=== PATIENT | male | born 1960 | race Hispanic/Latino ===

== ENCOUNTER → 2019-06-21 11:34 | Outpatient (CLI) | payer OTHER, SELFPAY ==
[2019-06-21 15:41] LABS: Absolute Lymphocyte Count 1.76 X10^3/uL (0.83-4.51); Absolute Neutrophil Count 4.4 X10^3/uL (2.0-7.7); Basophil# 0.05 X10^3/uL; Basophil% 0.7 % (0-1); Eosinophil# 0.27 X10^3/uL; Eosinophils% 3.7 % (0-5); Hematocrit 44.8 % (40-54); Hemoglobin 14.2 g/dL (13.0-16.5); Lymphocyte # 1.76 X10^3/ul (4.0); Mean Corp Hgb Conc 31.7 g/dL (32-36); Mean Corpuscular Hgb 26.5 pg (27.0-32.0); Mean Corpuscular Volume 83.6 fL (80-94); Mean Platelet Vol. 11.5 fl (6.2-12.0); Monocyte# 0.87 X10^3/uL; Monocyte% 11.9 % (0-10); NRBC Flagged by Analyzer 0 % (0-5); Neutrophil # 4.35 X10^3/uL (2.7-7.7); Neutrophil % 59.2 % (47-70); Platelet Count 317 K/mm3 (150-450); RBC Distribution Width CV 13.5 % (11.6-14.6); RBC Distribution Width SD 41.2 fl (35.1-43.9); Red Blood Count 5.36 M/mm3 (4.6-6.2); White Blood Count 7.3 K/mm3 (4.4-11.0)
[2019-06-21 16:02] LABS: Anion Gap 4 (5-15); BUN 9 mg/dL (7-18); BUN/Creat Ratio 11.1 RATIO (10-20); Calcium,Total 8.8 mg/dL (8.5-10.1); Chloride 104 mmol/L (98-107); Cholesterol 181 mg/dL (200); Creatinine, Serum 0.81 mg/dL (0.70-1.30); EST Glomerular Filtration Rate 104 mL/min (>60); Est Glom Filt Rate - Afr Amer 125 mL/min (>60); Glucose 111 mg/dL (74-106); High Density Lipoprotein 42 mg/dL; PSA,Total - Annual Screen 0.15 ng/mL (0.00-4.00); Sodium Level 138 mmol/L (136-145); Thyroid Stim Hormone (TSH) 1.48 uIU/mL (0.358-3.74); Triglycerides 89 mg/dL; Very Low Density Lipoprotein 18 mg/dL (5-40)
[2019-06-25 08:08] LABS: Testosterone, Free 4.74 ng/dL (5.00-21.00)
[2019-06-25 11:47] LABS: Testosterone, % Free 2.52 % (1.50-4.20); Testosterone, Total 188 ng/dL (264-916)
== END ==
PROVIDERS: PCP Family Medicine; Referring Provider Family Medicine; Visit Provider Family Medicine
DX: Z13.1 Encounter for screening for diabetes mellitus (principal); Z13.220 Encounter for screening for lipoid disorders; R63.5 Abnormal weight gain; R68.82 Decreased libido
CPT/HCPCS: 36415; 80048; 80061; 84153; 84402; 84403; 84443; 85025; G0103

== ENCOUNTER 2019-09-27 08:30 | Outpatient (RCR) | payer OTHER, SELFPAY ==
--- NOTE | 2019-08-26 11:37 | HP.PTEVAL_ITS ---
Patient's Visit Information JALEN SANDERS is a 58 year old M referred to Physical Therapy by Dr. Brandin Benoit MD with a diagnosis of Fallen arches. 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 - Subjective Subjective: Wants orthotics, had a pair from [facility] 7 yrs ago. Wears orthotics due to h/o PFitis. Has intermittent flares of PFitis and burning pain. Has no pain right now. 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 Last pain was last week when he is on feet all day. Pain is to 8/10 and gone the next mroning. Self massage helps. Does some stretches of the calf. Pain does not keep him from doing anything, he just plows through but does have LBP that limits him physically. - Pain L PF Pain Intensity (Out of 10): 0 Pain Intensity Range: 0, 8 - Objective R leg 1/8 inch shorter than L. Patient has tenderness B plantar surface calcaneus. Slight pes cavus. B with some mild hindfoot varus L >R. Walks lauryn, transitions normal. Only wants orthotics today, no therapy and that is consistent with script. - Goals Goal 1:: fit for adn I in use of appropriate new orthotics. Goal Time Frame: 2-4 Weeks - Rehabilitation Potential Physical Therapy Diagnosis: Biomechanical foot abnormalities. Rehabilitation Potential: Good - Anticipated Interventions Patient/Client Instruction: Educate patient on: Plan of Care For the Purpose of:: To decrease pain Orthotics: Shoe insert For the Purpose of:: To decrease pain Thank you for the opportunity to evaluate your patient. For Medicare and Medicare HMO plans, please review the plan of care and approve it. It will need to be FAXED BACK to us at [phone] for Medicare purposes. For Medicare only, by signing this I certify the plan of care. Please let me know if there are questions or concerns regarding this plan of care. Physician Signature: Date:_
--- NOTE | 2019-08-26 14:24 | HP.OTEVAL ---
Patient's Visit Information JLAEN SANDERS is a 58 year old M, referred to Occupational Therapy by Dr. Brandin Benoit MD, with a diagnosis of right CTS. Date of Evaluation: 08/26/19 Occupational Therapist: Ana London, TINA/Elli, CHT - Subjective Subjective: This 58 year old male was seen for OT eval with dx with right CTS. pt states the last 6 months symptoms are getting worse. Pt states he does a lot of typing at a computer and can not put positon that increases his symptoms- states sometimes sensation is from neck down his arm. pt would like to know what he can do to decrease his symptoms. 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 with ADLs and IADls by d/c Goal:: pt will report a decrease in tingling/numbness to less than 1 x a week by d./c Goal:: pt will demo understanding of work station ergo by 3rd visit to decrease compression of Median nerve during work tasks. - Rehabilitation General Assessment: pt demo with positive median nerve entrapment and would benefit from skilled OT services 2x week for 4 weeks to decrease nerve compression, ed.on dx and work station ergo. as well as nerve glides to decrease pts symptoms of numbness/ tingling to return pt to IND. level. Today therapist ed. pt on nerve glides, work station ergonomics. pt was given handout and demo understanding of ex and workstation ergo. pt agree to POC. Rehabilitation Potential: Good - Anticipated Interventions Anticipated Interventions: A/AAROM/PROM, Strengthening, Triggerpoint Release, Sensory Retraining, Modalities, Joint Protection/Energy Conservation, Ergonomic Education, Sensory Stimulation, Education re Diagnosis, Home Program - Visit Plan Frequency: 2x /Week Duration: 4 Weeks TEXT: Thank you for the opportunity to evaluate your patient. For Medicare and Medicare HMO plans, please review the plan of care and approve it. It will need to be FAXED BACK to us at [phone] for Medicare purposes. Please let me know if there are questions or concerns regarding this plan of care. Physician Signature: Date:
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
--- NOTE | 2019-09-27 09:03 | HP.PTDCSUM ---
It has been my pleasure to treat JALEN SANDERS referred by Dr. Brandin Benoit MD, with the diagnosis of Fallen archseth for a total of 6 visit(s). Discharge Date: 09/27/19 Please see the following information for a summary of their discharge status. Subjective: orthotics feel good, adjusting well. Neck feels much better and more relaxed. Very little pain, 80% better. Thinks he can do neck himself as he can start training as gym opens next week. 2/10 neck tightness much of time still present btu manageable. Numbness in R arm much better and feels he can monitor it and improve. Work is going OK. Sits on couch . Sleep is OK as far as neck goes. L PF Pain Intensity (Out of 10): 2 % Improvement: 80 Objective/Function: 72 degrees B rotationa dn 80 ext without pain today. Feels much looser adn subjectively much better. Goal 1:: fit for adn I in use of appropriate new orthotics. Goal Progress: Goal Met Goal 2:: Full cervical AROM without pain Goal Progress: Goal Met Goal 3:: Arm symptoms in R side aboloished Goal Progress: Progressing Goal 4:: I approp ex to minimize future problems Goal Progress: Goal Met Goal 5:: Score of , 3/10 on neck oswestry Goal Progress: Progressing Plan: d/c , pt to continue on his own. Discharge Comments: Pt neck doing well. Will continue via gyma dn home HEP. May require script for LB pain but wishes to get back to gym routine vefore making this decision. If there are questions or concerns regarding this patient's physical therapy, please feel free to call me at [phone]. Thank you for the referral of this patient. Sincerely, Ivan Thompson, DPT, OCS, CSCS
--- NOTE | 2019-11-01 14:22 | HP.OT.NRP ---
JALEN SANDERS was seen in my office for initial evaluation on 08/26/19. The following Plan of Care was established for this patient: Initial Frequency: 2x /Week Initial Duration: 4 Weeks Anticipated Interventions: A/AAROM/PROM, Strengthening, Triggerpoint Release, Sensory Retraining, Modalities, Joint Protection/Energy Conservation, Ergonomic Education, Sensory Stimulation, Education re Diagnosis, Home Program This patient was last seen in our office 09/09/19. Pertinent comments regarding their Occupational therapy will appear below: pt was seen for 4 visits of OT with dx of CTS. OT ed. pt on work ergo and median nerve glides- pt made some improvments but therapist rec'd PT for questioning impingment at higher levle. pt to cont with HEP as clay. and progress with PT.D/C from OT at this time. At this point I will be discontinuing this patient from occupational therapy. I would be happy to see this patient again in the future if found appropriate by the physician. Thank you! Ana London, OTR/L, CHT
== END 2019-09-27 19:00 | disposition home or self-care (01) ==
LOC: PT 08:30
PROVIDERS: PCP Family Medicine; Referring Provider Family Medicine; Visit Provider Family Medicine
DX: G56.01 Carpal tunnel syndrome, right upper limb (principal); M54.2 Cervicalgia
CPT/HCPCS: 97035; 97110; 97140; 97161; 97164; 97166; 97760; 97763

== ENCOUNTER → 2019-10-21 11:44 | Outpatient (CLI) | payer OTHER, SELFPAY | PROVIDERS: PCP Family Medicine; Visit Provider Family Medicine | DX: E29.1 Testicular hypofunction (principal) | CPT/HCPCS: 36415; 84403 ==

== ENCOUNTER → 2020-05-12 11:24 | Outpatient (CLI) | payer OTHER, SELFPAY ==
[2020-05-12 16:04] LABS: ALB/GLOB Ratio 0.8 RATIO (0.9-2.4); AST(SGOT) 21 U/L (15-37); Alanine Aminotransfer ALT/SGPT 39 U/L (16-61); Albumin, Serum 3.2 g/dL (3.2-5.0); Alkaline Phosphatase 121 U/L (45-117); Anion Gap 7 (5-15); BUN 9 mg/dL (7-18); BUN/Creat Ratio 11.2 RATIO (10-20); Calcium,Total 8.4 mg/dL (8.5-10.1); Chloride 101 mmol/L (98-107); Cholesterol 184 mg/dL (200); EST Glomerular Filtration Rate 105 mL/min (>60); Est Glom Filt Rate - Afr Amer 127 mL/min (>60); Glucose 155 mg/dL (74-106); High Density Lipoprotein 41 mg/dL; Potassium 3.6 mmol/L (3.5-5.1); Protein, Total 7.2 g/dL (6.4-8.2); Sodium Level 137 mmol/L (136-145); Triglycerides 122 mg/dL; Very Low Density Lipoprotein 24 mg/dL (5-40)
== END ==
PROVIDERS: PCP Family Medicine; Referring Provider Family Medicine; Visit Provider Family Medicine
DX: Z00.00 Encounter for general adult medical examination without abnormal findings (principal)
CPT/HCPCS: 36415; 80053; 80061

== ENCOUNTER 2020-09-30 15:00 | Outpatient (RCR) | payer OTHER, SELFPAY ==
--- NOTE | 2020-09-30 16:03 | HP.PTEVAL ---
Patient's Visit Information JALEN SANDERS is a 59 year old M referred to Physical Therapy by Dr. Brandin Benoit MD with a diagnosis of Intermittent vertigo. Date of Evaluation: 09/30/20 Physical Therapist: Ivan Thompson, MARIELA, OCS, CSCS - Visit Plan Frequency: 1x/Week Duration: 4-6 Weeks Plan: weekly x 3-6 for. progression of VOR and adaptation ex as helpful.Next week progress to busy or VOR x 2 etc. - Subjective 20 years of vertigo on and off. Started in swimming pool in [place] and got dizzyness started to show up. Now every 5 yrs it shows up. If he does't get enough sleep it is worse. Currently frequent but not severe. Gets it 1-2x/week brought on by lack of sleep. It feels like a hangover, worse with looking down. Lasts 4 days with that hangover feeling. No spinning lately. Then goes away and doesn't come back for a while. Feels OK lying in bed, sometimes initial movement gives him some movement but that doesn't last long. Sleep is OK when he can, has cpap. 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 Hobbies is working out, and he does it when he can, this does not limit him in his workouts. Has PLASCENCIA at times with dizzyness. Neck pain when on computer for long time whcih he does at work. Has been treated with meds in past but no dizzyness tests, Had some vertigo exercises whcih do not help. Balance feels good adn no falls. - Objective Walks normal and safe, transfer I adn safe, Steps reciprocal with one rail. cervical aROM WNL and without pain. UE AROM WFL and without pain. - B hallpike beny. - roll test. Oculomotor: no ystagmus with gaze or head shake. - skew eye deviation. - ocular tilt. slight + R head thrust. pursuit and saccades are normal. VOR horiz 30 sec 5/10 transient. VOR vertical 30 sec 7/10 for 5 seconds. - MSQ positions including head shake and head nods and 180 turns adn up from knee. - Balance Scores Functional Gait Assessment Score: 29 % Disability: 3.3400 - Goals Goal 1:: Pt feel 75% better in vertigo overall Goal Time Frame: 4-6 Weeks Goal 2:: Pt work 16 hour shift without increase dizzyness. Goal Time Frame: 4-6 Weeks Goal 3:: DHI score 15 or less. Goal Time Frame: 4-6 Weeks - Rehabilitation Potential Physical Therapy Diagnosis: possible vestibualr hypofunction Rehabilitation Potential: Fair - Anticipated Interventions Patient/Client Instruction: Educate patient on: Condition Other: to decrease dizzyness Comment: adaptation For the Purpose of:: To increase tolerance to activity/condition/position Thank you for the opportunity to evaluate your patient. For Medicare and Medicare HMO plans, please review the plan of care and approve it. It will need to be FAXED BACK to us at [phone] for Medicare purposes. For Medicare only, by signing this I certify the plan of care. Please let me know if there are questions or concerns regarding this plan of care. Physician Signature: Date:
--- NOTE | 2020-12-01 11:49 | HP.PT.NRP ---
JALEN SANDERS was seen in my office for initial evaluation on 09/30/20. The following Plan of Care was established for this patient: Initial Frequency: 1x/Week Initial Duration: 4-6 Weeks Patient/Client Instruction: Educate patient on: Condition Other: to decrease dizzyness For the Purpose of:: To increase tolerance to activity/condition/position This patient was last seen in our office 09/30/20. Pertinent comments regarding their Physical therapy will appear below: Pt seen for initial evaluation and POC established. Pt cancelled next visit and neglected to attend or schedule any further. At this point, it has been over two months and I will discontinue due to nonattendance. At this point I will be discontinuing this patient from physical therapy. I would be happy to see this patient again in the future if found appropriate by the physician. Thank you! Ivan Thompson, DPT, OCS, CSCS Balance/Gait/Functional tests - Balance/Special Test Scores Functional Gait Assessment Score: 29 % Disability: 3.3400 Dizziness Score: 48
== END 2020-09-30 19:00 | disposition home or self-care (01) ==
LOC: PT 15:00
PROVIDERS: PCP Family Medicine; Referring Provider Family Medicine; Visit Provider Family Medicine
DX: R42 Dizziness and giddiness (principal)
CPT/HCPCS: 97110; 97162

== ENCOUNTER 2021-07-05 13:00 | Outpatient (RCR) | payer OTHER, SELFPAY | END 2021-07-05 23:59 | disposition home or self-care (01) | LOC: DC 13:00 | PROVIDERS: PCP Nurse Practitioner Family; Referring Provider Nurse Practitioner Family; Visit Provider Nurse Practitioner Family | DX: E11.9 Type 2 diabetes mellitus without complications (principal) | CPT/HCPCS: 97802; G0108 ==

== ENCOUNTER → 2021-10-05 | Outpatient (CLI) | payer OTHER, SELFPAY ==
[2021-10-05 12:47] LABS: AST(SGOT) 15 U/L (15-37); Alanine Aminotransfer ALT/SGPT 28 U/L (16-61); Albumin, Serum 3.1 g/dL (3.2-5.0); Alkaline Phosphatase 95 U/L (45-117); Anion Gap 6 (5-15); BUN 9 mg/dL (7-18); BUN/Creat Ratio 10.9 RATIO (10-20); Calcium,Total 8.5 mg/dL (8.5-10.1); Chloride 105 mmol/L (98-107); Cholesterol 163 mg/dL (200); Creatinine, Serum 0.83 mg/dL (0.70-1.30); EST Glomerular Filtration Rate 100 mL/min (>60); Est Glom Filt Rate - Afr Amer 121 mL/min (>60); Globulin 4.1 g/dL (2.2-4.2); Glucose 131 mg/dL (74-106); High Density Lipoprotein 40 mg/dL; Microalbumin,Random Urine 23.5 mg/L (NO RANGE EST.); Protein, Total 7.2 g/dL (6.4-8.2); Sodium Level 139 mmol/L (136-145); Triglycerides 142 mg/dL; Very Low Density Lipoprotein 28 mg/dL (5-40)
== END | disposition home or self-care (01) ==
LOC: MFPLAB 11:00
PROVIDERS: PCP Nurse Practitioner Family; Visit Provider Family Medicine
DX: E11.9 Type 2 diabetes mellitus without complications (principal)
CPT/HCPCS: 36415; 80048; 80061; 80076; 82043; 82570

== ENCOUNTER → 2022-04-25 | Outpatient (CLI) | payer OTHER, SELFPAY ==
[2022-04-25 15:21] LABS: Absolute Lymphocyte Count 1.86 X10^3/uL (0.83-4.51); Absolute Neutrophil Count 4.2 X10^3/uL (2.0-7.7); Basophil# 0.04 X10^3/uL; Basophil% 0.6 % (0-1); Eosinophil# 0.16 X10^3/uL; Eosinophils% 2.3 % (0-5); Hematocrit 43.2 % (40-54); Hemoglobin 13.9 g/dL (13.0-16.5); Lymphocyte # 1.86 X10^3/ul (0.83-4.51); Lymphocyte % 26.5 % (19-41); Mean Corp Hgb Conc 32.2 g/dL (32-36); Mean Corpuscular Hgb 27.2 pg (27.0-32.0); Mean Corpuscular Volume 84.5 fL (80-94); Mean Platelet Vol. 11.2 fl (6.2-12.0); NRBC Flagged by Analyzer 0 % (0-5); Neutrophil # 4.24 X10^3/uL (2.7-7.7); Neutrophil % 60.2 % (47-70); Platelet Count 375 K/mm3 (150-450); RBC Distribution Width CV 13.6 % (11.6-14.6); RBC Distribution Width SD 42.2 fl (35.1-43.9); Red Blood Count 5.11 M/mm3 (4.6-6.2)
[2022-04-25 15:50] LABS: ALB/GLOB Ratio 0.9 RATIO (0.9-2.4); AST(SGOT) 11 U/L (15-37); Alanine Aminotransfer ALT/SGPT 23 U/L (16-61); Albumin, Serum 3.2 g/dL (3.2-5.0); Alkaline Phosphatase 95 U/L (45-117); Anion Gap 5 (5-15); BUN 9 mg/dL (7-18); BUN/Creat Ratio 11.7 RATIO (10-20); Calcium,Total 8.7 mg/dL (8.5-10.1); Chloride 105 mmol/L (98-107); Cholesterol 163 mg/dL (200); Creatinine, Serum 0.77 mg/dL (0.70-1.30); EST Glomerular Filtration Rate 110 mL/min (>60); Est Glom Filt Rate - Afr Amer 133 mL/min (>60); Globulin 3.5 g/dL (2.2-4.2); Glucose 102 mg/dL (74-106); High Density Lipoprotein 43 mg/dL; Microalbumin,Random Urine 17.1 mg/L (NO RANGE EST.); PSA,Total - Annual Screen 0.18 ng/mL (0.00-4.00); Potassium 4.2 mmol/L (3.5-5.1); Protein, Total 6.7 g/dL (6.4-8.2); Sodium Level 139 mmol/L (136-145); Triglycerides 111 mg/dL; Very Low Density Lipoprotein 22 mg/dL (5-40)
== END | disposition home or self-care (01) ==
LOC: MFPLAB 12:00
PROVIDERS: PCP Nurse Practitioner Family; Visit Provider Family Medicine
DX: E11.59 Type 2 diabetes mellitus with other circulatory complications (principal); Z12.5 Encounter for screening for malignant neoplasm of prostate
CPT/HCPCS: 36415; 80053; 80061; 82043; 84153; 85025; G0103

== ENCOUNTER 2022-10-26 14:08 | Emergency (ER) | payer OTHER, SELFPAY ==
[2022-10-26 14:09] VITALS: BP 119/112; PULSE 87; RESP 16; TEMP 36.4; O2SAT 97; BMI 47.7
--- NOTE | 2022-10-26 14:57 | EX.ED.DYSGE1 ---
HPI History of Present Illness Chief Complaint: GI Bleed Informant: patient Narrative Narrative: Patient presents secondary to possible GI bleed. He states he was showering while getting ready for work and noted blood in the bowel in the shower. He states there was a stream of blood running down his left medial leg. He also passed a small clot. He said he had absolutely no pain. He has not noted any recent blood in his stool. [facility] Medical History Carpal tunnel syndrome Chronic sinusitis Hypogonadism Vertigo Home Medications albuterol sulfate 90 mcg/actuation aerosol inhaler (ProAir HFA) 2 puff inhalation Q6H PRN 07/08/21 [History Last Taken Unknown] ipratropium bromide 21 mcg (0.03 %) nasal spray 2 spray intranasal BID-TID PRN 07/08/21 [History Last Taken Unknown] loratadine 10 mg capsule 10 mg PO DAILY 07/08/21 [History Last Taken Unknown] losartan 50 mg tablet 50 mg PO DAILY 07/08/21 [History Last Taken Unknown] metformin 500 mg tablet 500 mg PO BID 07/08/21 [History Last Taken Unknown] pseudoephedrine-ibuprofen 30 mg-200 mg capsule (Advil Cold and Sinus) 1 cap PO DAILY PRN 07/08/21 [History Last Taken Unknown] montelukast 10 mg tablet (Singulair) 10 mg PO QHS 02/22/22 [History Last Taken Unknown] Allergy/AdvReac Type Severity Reaction Status Date / Time animal dander Allergy Itching Verified 02/22/22 07:53 iodine Allergy Anaphylaxis Verified 02/22/22 07:53 Surgical History History of arthroscopic knee surgery History of carpal tunnel surgery of left wrist History of hernia repair S/P orchiopexy Social History Smoking Status: Never smoker second hand exposure: No alcohol intake: never substance use type: does not use caffeine: Yes Type: coffee Number of servings: 2 ROS ROS ED Constitutional Constitutional ED: Denies chills or fever(s) Eyes Eyes: Denies change in vision or discharge from eye(s) ENT ENT ED: Denies discharge from eye(s), rhinorrhea or sore throat Cardiovascular Cardiovascular: Denies chest pain or palpitations Respiratory/Chest Respiratory/Chest: Denies cough or dyspnea Gastrointestinal Gastrointestinal: Denies abdominal pain, diarrhea, nausea or vomiting Genitourinary Genitourinary ED: Denies dysuria Musculoskeletal Musculoskeletal: Denies back pain or extremity pain Integumentary Denies Abrasions or rash Neurologic Neurologic: Denies headache(s) or weakness Psychiatric Psychiatric: Denies anxiety or depression Allergic/Immunologic Allergic/Immunologic ED: Denies lip swelling or urticaria EXAM Physical Exam Const Vital Signs: 10/26/22 14:09 Temperature 97.5 F L Temperature Source Temporal Pulse Rate 87 Respiratory Rate 16 Blood Pressure 119/112 H Blood Pressure Mean 114 Pulse Ox 97 Oxygen Delivery Method Room Air Positive well nourished and well developed General Appearance ED: well developed HEENT Reports normocephalic and head/scalp atraumatic Eyes PERRL and EOMs intact bilaterally Neck supple Chest Wall inspection of chest normal and palpation of chest normal Resp normal respiratory effort and clear to auscultation bilaterally Cardio regular rate and regular rhythm GI normal to inspection, nondistended, normoactive bowel sounds GI Narrative: Rectal examination reveals no evidence of hemorrhoids or fissure. No evidence of blood around the anus. Small amount of light brown stool noted on gloved finger. Palpation: soft Extremity normal to inspection Neuro oriented x3 and no sensory deficits noted Sensorium / Orientation: alert Motor Exam: strength 5/5 throughout Psych mental status grossly normal Skin no rashes or lesions noted MDM MDM MDM Narrative Medical decision making narrative: Labwork obtained to evaluate for leukocytosis, anemia, and electrolyte derangement. Stool guaiac obtained to evaluate for blood. Lab Data Attestation: I reviewed the patient's lab results. Labs: Laboratory Results - last 24 hr 10/26/22 10/26/22 10/26/22 15:21 15:21 15:21 WBC 8.3 RBC 5.20 Hgb 14.0 Hct 43.8 MCV 84.2 MCH 26.9 L MCHC 32.0 RDW Std Deviation 39.8 RDW Coeff of Evonne 13.1 Plt Count 350 MPV 11.2 Immature Gran % (Auto) 0.200 Neut % (Auto) 64.5 Lymph % (Auto) 23.4 [place] % (Auto) 9.9 Eos % (Auto) 1.4 Baso % (Auto) 0.6 Absolute Neuts (auto) 5.4 Absolute Lymphs (auto) 1.94 Nucleated RBC % 0 PT 12.7 INR 1.0 APTT 30.6 Sodium 139 Potassium 4.1 Chloride 106 Carbon Dioxide 31.0 Anion Gap 2 L BUN 11 Creatinine 0.72 Estim Creat Clear Calc 100.73 Est GFR (MDRD) Af Amer 142 Est GFR (MDRD) Non-Af 117 BUN/Creatinine Ratio 15.2 Glucose 100 Calcium 9.3 Treatment and Re-Evaluation :: CBC is unremarkable with normal hemoglobin at 14. Coags are unremarkable. Chemistry studies normal. Stool guaiac returns negative for blood. Patient's not had any further bleeding while here. He will continue to monitor his symptoms. I will give him referral information for Dr. Roy and return instructions to the ER if he develops recurrent symptoms. Discharge Plan Triage Chief Complaint: GI Bleed ED Provider: Vi Herrera Dx/Rx/DC Orders Clinical Impression: GI bleed Instructions: ED Lower GI Bleeding (Stable) Prescriptions: No Action ipratropium bromide 21 mcg (0.03 %) spray,non-aerosol 2 spray intranasal BID-TID PRN Rx Instructions: administer into each nostril albuterol sulfate [ProAir HFA] 90 mcg/actuation HFA aerosol inhaler 2 puff inhalation Q6H PRN Advil Cold and Sinus 30-200 mg capsule 1 cap PO DAILY PRN loratadine 10 mg capsule 10 mg PO DAILY losartan 50 mg tablet 50 mg PO DAILY metformin 500 mg tablet 500 mg PO BID montelukast [Singulair] 10 mg tablet 10 mg PO QHS Primary Care Provider: Abi Caballero Referrals: Martinez Roy DO [Med Staff - Active Staff] - As Needed Alexandra Marshall CERTIFIED ADAPTED PHYSICAL EDUCATOR, CERTIFIED ADAPTED PHYSICAL EDUCATOR-C [Non-Staff -Ordering Privileges] - Disposition Disposition: Home, Self Care
[2022-10-26 15:42] LABS: Partial Thromboplast Time 30.6 Seconds (24.1-36.2); Prothrombin Time (Protime)PT. 12.7 SECONDS (11.7-14.9)
[2022-10-26 15:46] LABS: Anion Gap 2 (5-15); BUN 11 mg/dL (7-18); BUN/Creat Ratio 15.2 RATIO (10-20); Calcium,Total 9.3 mg/dL (8.5-10.1); Chloride 106 mmol/L (98-107); Creatinine, Serum 0.72 mg/dL (0.70-1.30); EST Glomerular Filtration Rate 117 mL/min (>60); Est Glom Filt Rate - Afr Amer 142 mL/min (>60); Estimated Creatinine Clearance 100.73 ml/min; Glucose 100 mg/dL (74-106); Potassium 4.1 mmol/L (3.5-5.1); Sodium Level 139 mmol/L (136-145)
[2022-10-26 16:08] VITALS: BP 162/94
[2022-10-26 16:27] LABS: Absolute Lymphocyte Count 1.94 X10^3/uL (0.83-4.51); Absolute Neutrophil Count 5.4 X10^3/uL (2.0-7.7); Basophil# 0.05 X10^3/uL; Basophil% 0.6 % (0-1); Eosinophil# 0.12 X10^3/uL; Eosinophils% 1.4 % (0-5); Hematocrit 43.8 % (40-54); Lymphocyte # 1.94 X10^3/ul (0.83-4.51); Lymphocyte % 23.4 % (19-41); Mean Corpuscular Hgb 26.9 pg (27.0-32.0); Mean Corpuscular Volume 84.2 fL (80-94); Mean Platelet Vol. 11.2 fl (6.2-12.0); Monocyte# 0.82 X10^3/uL; Monocyte% 9.9 % (0-10); NRBC Flagged by Analyzer 0 % (0-5); Neutrophil # 5.35 X10^3/uL (2.7-7.7); Neutrophil % 64.5 % (47-70); Platelet Count 350 K/mm3 (150-450); RBC Distribution Width CV 13.1 % (11.6-14.6); RBC Distribution Width SD 39.8 fl (35.1-43.9); White Blood Count 8.3 K/mm3 (4.4-11.0)
== END 2022-10-26 16:48 | disposition home or self-care (01) ==
PROVIDERS: Emergency Provider Emergency Medicine; PCP Family Medicine; Visit Provider Emergency Medicine
DX: K92.1 Melena (principal)
CPT/HCPCS: 80048; 82274; 85025; 85610; 85730; 99283

== ENCOUNTER 2022-12-08 10:30 | Outpatient (RCR) | payer OTHER, SELFPAY ==
--- NOTE | 2022-11-02 12:34 | HP.PTEVAL_ITS ---
Patient's Visit Information Visit Information Visit Information: JALEN SANDERS is a 61 year old M referred to Physical Therapy by Dr. Dakota Celestin DPM with a diagnosis of ACHILLES TENDONITIS WITH ENTHESOPHYTE CALCANEUS. Date of Evaluation: 11/02/22 Physical Therapist: Shane Lopez, PT, Cert MDT, OCS Visit Plan Frequency: 3x /Week Duration: 6 Weeks Plan: PT INTERVETIONS FLEXABLITY CALF ,MANUAL THERAPY STM/STICK TO CALF ,IOTIOPHORESIS WITH 4 % DEXAMETHOSONE ,US AND ROM Subjective Subjective: This 61 y/o male presents to physical therapy Achilles tendonitis with enthesophyte calcaneus . Patient has had Achilles pain ~ 8months . Patients seen kiln tester did x-rays showed spur deltoid attachment. Recommended PT . No injection or medication. Aggravating standing affects job demands. Alleviating factors walking. Denies paresthesia/tingling -. Patient sleeping okay. Patient condition is intermittent described as tightness. Patient condition affects QOL. Patient goals to decrease pain. 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 Pain Right Ankle: Pain Intensity (Out of 10): 3 Pain Intensity Range: 10 Objective Objective: POSTURE: (frontal plan mechanics) -pes planus GAIT: reciprocal normal martin PALPATION: tender Achilles ,mod/severe tender G-S muscle belly OBSETVATION: deltoid tuberosity thickening bone spur AROM: dorsiflexion 0 degrees ,plantar flexion 60 degrees , eversion 5 degrees , inversion 20 degrees MMT: ankle DF/PF/EV/IN 4/5 FLEXABLITY: G-S mod tight Balance/Special Test Scores Lower Extremity Functional Score: 40 Goals Goal 1:: Patient to be I with HEP for Achilles Goal Time Frame: 4-6 Weeks Goal 2:: Patient to demonstrate 50% improvement with decrease pain and improved function with gait Goal Time Frame: 4-6 Weeks Goal 3:: Patient to improve AROM ankle especially dorsiflexion by 5 degrees to improve gait Goal Time Frame: 4-6 Weeks Goal 4:: Patient to improve LFES score by 5-10 points to improve QOL and function Goal Time Frame: 4-6 Weeks Rehabilitation Potential Physical Therapy Diagnosis: This patient has spur with tenderness achilles ,pain ,tightness calf and muscle belly impairs walking and standing thus benefit from skilled PT Rehabilitation Potential: Good Anticipated Interventions Patient/Client Instruction: Educate patient on: Condition and Plan of Care For the Purpose of:: To decrease pain, To increase ROM, To improve muscle performance and motor function, To increase tolerance to activity/condition/position, To improve ability of physical actions for home/community/work/leisure, To improve gait and locomotor functions, To improve health of tissue, To decrease soft tissue restriction, To increase flexibility/ROM, To improve balance, To reduce risk of recurrence and To improve tolerance to ADL's Therapeutic Exercise to Include: Strength training, Flexibilty training and Active ROM Comment: ANKLE For the Purpose of:: To decrease pain, To decrease swelling/inflammation, To increase ROM, To improve nutrient delivery to tissue, To increase oxygenation perfusion, To improve muscle performance and motor function, To increase tolerance to activity/condition/position, To improve ability of physical actions for home/community/work/leisure, To improve health of tissue, To decrease soft tissue restriction and To increase flexibility/ROM Manual Therapy Techniques to Include: Massage and Mobilization Comment: STICK CALF For the Purpose of:: To increase ROM, To improve nutrient delivery to tissue, To increase oxygenation perfusion, To improve health of tissue, To decrease soft tissue restriction and To increase flexibility/ROM Iontophoresis (with Dexamethozone, with Acetic acid): Yes (DEXAMTHOZONE) Cryotherapy (ice pack, ice massage): Yes Thermo therapy (hot pack): Yes Ultrasound (thermal/non thermal): Yes For the Purpose of:: To decrease pain, To decrease swelling/inflammation, To increase ROM, To improve nutrient delivery to tissue, To increase oxygenation perfusion, To improve health of tissue and To decrease soft tissue restriction Text: Thank you for the opportunity to evaluate your patient. For Medicare and Medicare HMO plans, please review the plan of care and approve it. It will need to be FAXED BACK to us at [phone] for Medicare purposes. For Medicare only, by signing this I certify the plan of care. Please let me know if there are questions or concerns regarding this plan of care. Physician Signature: Date:
== END 2022-12-08 19:00 | disposition home or self-care (01) ==
LOC: PT 10:30
PROVIDERS: PCP Family Medicine; Referring Provider Student in an Organized Health Care Education/Training Program; Visit Provider Student in an Organized Health Care Education/Training Program
DX: M76.61 Achilles tendinitis, right leg (principal)
CPT/HCPCS: 97035; 97140; 97162

== ENCOUNTER → 2023-02-25 | Outpatient (CLI) | payer OTHER, SELFPAY ==
--- NOTE | 2023-02-25 08:10 | MRI_ITS ---
STUDY: MRI BRAIN WITHOUT CONTRAST REASON FOR EXAM: Male, 62 years old. ATAXIA, vertigo attention IACS TECHNIQUE: Standardized multiplanar fat and water weighted pulse sequences were obtained. COMPARISON: HEMISPHERES, CEREBELLUM AND BRAINSTEM: 1. The cerebral parenchyma, ventricular system, subarachnoid spaces have normal configuration and density. There is a normal gyral pattern. There is normal thayer/white differentiation. No midline shift.. 2. Of increased T2 signal intensity in the periventricular white matter on the FLAIR and T2-weighted series consistent with mild chronic microvascular ischemic change. 3. No intraparenchymal mass, hemorrhage, or acute territorial infarct. 4. The cerebellum, brainstem, basilar and suprasellar cisterns have normal appearance. No Chiari malformation. 5. There is an ossification of the falx between the posterior frontal lobes. This measures 2 cm AP by 0.5 cm transverse by 0.7 cm craniocaudal. PITUITARY: Infundibulum and pituitary have normal configuration. Midline structures appear normal. CSF SPACES: Appropriate for age. No hydrocephalus. Basal cisterns are patent. VESSELS: 1. There are normal flow voids noted in the great vessels at the skull base ORBITS AND PARANASAL SINUSES: 1. Both globes, extraocular muscles, optic nerves and retrobulbar fat appear unremarkable. 2. Complete opacification of the frontal sinuses and ethmoidal air cells right maxillary sinus, near complete opacification of left maxillary sinus and severe opacification of the left sphenoid sinus. BONY ELEMENTS: Bony elements of the cranial vault, facial skeleton and skull base have normal appearance. SCALP AND SOFT TISSUES: Normal appearance of the soft tissues of the scalp and the visualized face OTHER: None MRI/Brain without Contrast IMPRESSION: 1. No intracranial mass, hemorrhage, or acute territorial infarct. 2. Mild chronic microvascular ischemic change. 3. Pansinusitis. 4. 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 This is of doubtful clinical significance. Electronically Signed: Vidal Koenig MD at 12:45 EDT ,
== END | disposition home or self-care (01) ==
LOC: MRI 08:06
PROVIDERS: PCP Family Medicine; Visit Provider Otolaryngology Otolaryngology/Facial Plastic Surgery
DX: R42 Dizziness and giddiness (principal)
CPT/HCPCS: 70551

== ENCOUNTER → 2023-06-28 | Outpatient (CLI) | payer OTHER, SELFPAY ==
--- OUTSIDE RECORDS SUMMARY | 2023-06-28 11:05 | XMS RPT_ITS | CCD ---
Author Name Unknown Address [address] [place] [address] Organization [facility] Care Team Providers Care Stevedoring Supervisor Name Role Phone Pradip ALEXANDER, Mohsen Jones Primary Care Provider Allergies Allergy Classification Reported Allergen(s) Allergy Type Date of Onset Reaction(s) Facility Iodine (and Iodine containting drugs) (1 source) Iodine Drug Allergy 6 Anaphylaxis [facility] Unclassified (1 source) Animal Dander Drug Intolerance 6 Intolerance [facility] Work Phone: Unclassified (1 source) shell fish [Other] Propensity to adverse reactions 6 Anaphylaxis [facility] Medications Completed/Discontinued Medications Medication Drug Class(es) Dates Sig (Normalized) Sig (Original) [id number] 200 actuat albuterol 0.09 mg/actuat metered dose inhaler (1 source) beta2-Adrenergic Agonist Start: 01-29-2019 take 2 puff(s) by inhalation every four hours as needed for wheezing albuterol HFA (VENTOLIN HFA) 90 mcg/actuation inhaler Inhale 2 Puffs as instructed every 4 hours as needed for Wheezing/Shortnes s of Breath. 1 Inhaler 2 01/29/2019 Active Problems Active Problems Problem Classification Problem Date Documented Da te Episodic/Chronic Asthma (1 source) Asthma; Translations: [Unspecified asthma, uncomplicated] Onset: 01-28-2006 04-01-2015 Chronic Other nutritional; endocrine; and metabolic disorders (1 source) Morbid obesity; Translations: [Morbid (severe) obesity due to excess calories] Onset: 01-28-2006 08-07-2017 Chronic Residual codes; unclassified (1 source) Obstructive sleep apnea syndrome; Translations: [Obstructive sleep apnea (adult) (pediatric)] Onset: 01-28-2006 01-29-2019 Chronic Past or Other Problems Problem Classification Problem Date Documented Da te Episodic/Chronic Conditions associated with dizziness or vertigo (1 source) Vertigo; Translations: [Dizziness and giddiness] Onset: 09-21-2013 01-29-2019 Episodic Spondylosis; intervertebral disc disorders; other back problems (1 source) Low back pain; Translations: [Low back pain] Onset: 01-28-2006 01-28-2006 Episodic Encounters Encounter Date Encounter Type Care Provider Facility Start: 05-13-2019 End: 05-13-2019 Telephone encounter Mohsen Moseley MD Work Phone: [facility] Procedures Date Procedure Procedure Detail Performing Clinician Start: 01-27-2010 Colonoscopy Mohsen Regalado MD Work Phone: Plan of Treatment Date Care Activity Detail Author Start: 01-30-2024 PROSTATE CANCER SCRE ENING DISCUSSION PROSTATE CANCER SCREENING DISCUSSION [facility] Start: 11-30-2023 LIPID SCREEN LIPID SCREEN [facility] Start: 11-29-2021 DIABETES SCREEN DIABETES SCREEN [facility] Start: 01-06-2021 Influenza vaccination INFLUENZA (Sea son Ended) [facility] Start: 01-28-2020 Screening for malign ant neoplasm of colon [facility] Start: 2010 Screening for malign ant neoplasm of colon [facility] Start: 2010 SHINGRIX VACCINE (1 of 2) VARGAS GRIX VACCINE (1 of 2) [facility] Start: 12-27-1979 Urine microalbumin profile DTAP,TDAP ,TD (1 - Tdap) [facility] Start: 1978 ANNUAL PCP TEAM CONSULTING HR PROFESSIONAL TEODORA DISEASE VISIT ANNUAL PCP TEAM CHRONIC DISEASE VISIT [facility] Start: 1978 HIV SCREENING HIV SCREENING [facility] Start: 1978 SPIROMETRY SPIROMETRY [facility] Start: 1972 Adult depression scr eening assessment DEPRESSION SCREENING [facility] Immunizations Immunization Date Immunization Notes Care Provider Fa kuldeep 03-01-2012 influenza virus vacc ine, whole virus Mohsen Moseley MD Work Phone: [facility] 03-01-2011 influenza virus vacc ine, unspecified formulation Mohsen Moseley MD Work Phone: [facility] 10-31-2007 pneumococcal polysaccharide vaccine, 23 valent Mohsen Charltonz MD Work Phone: [facility] Payers Date Payer Category Payer Unknown MMO MMO [employer] [id number] 2018-Present PPO 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 Need more specific information on what type of orthotics? Was it something Dr. Moseley had ordered? Does he just need a referral to [facility]? Ines Dorman DRIVER'S LICENSE EXAMINER.LAVONNE Alfonso Paul is calling Mohsen Moseley MD today to request Orders (orthotics to [facility])patient would like to picker machine operator orders to take to the hospital so that he can get the orthotics done there instead. Visual Merchandising Assistant is too far from home. Please call when orders are ready to picker machine operator Patient has been identified by name and birthdate. Duration of symptoms: N/A Person calling: self Call patient at: at home [phone] (home) [phone] (cell) Was an appointment scheduled: No Closing statement: Results or non-symptom based questions: Thank you for calling [facility], your call will be returned within the next business day. Edwige Ga Pss documented in this encounter [facility] History of Past illness Narrative 11-09-2013 Note Date & Type Note Facility documented as of this encounter (statuses as of 09/22/2020) [facility] Advance Directives Documents on File Type Date Recorded Patient Door And Arrival Attendant Expl anation Advance Directive(s) Additional Source Comments Source Comments (unrecognize d section and content) In the event this informatio n is protected by the Federal Confidentiality of Alcohol and Drug Abuse Patient Records regulations: The Federal rules restrict any use of the information to criminally investigate or prosecute any alcohol or drug abuse patient.[facility] Reason for Visit (unrecogniz ed section and content) FOR RECORDS PERTAINING TO PATIENTS WHO ARE OR HAVE BEEN ENROLLED IN A CHEMICAL DEPENDENCY/SUBSTANCEABUSE PROGRAM, SOME INFORMATION MAY BE OMITTED. This clinical summary was aggregated from multiple sources. Caution should be exercised in using it in the provision of clinical care. This summary normalizes information from multiple sources, and as a consequence, information in this document may materially change the coding, format and clinical context of patient data. In addition, data may be omitted in some cases. CLINICAL DECISIONS SHOULD BE BASED ON THE PRIMARY CLINICAL RECORDS. [employer] provides no warranty or guarantee of the accuracy or completeness of information in this document.
[2023-06-28 12:42] LABS: Absolute Lymphocyte Count 1.93 X10^3/uL (0.83-4.51); Absolute Neutrophil Count 4.9 X10^3/uL (2.0-7.7); Basophil# 0.05 X10^3/uL; Basophil% 0.6 % (0-1); Eosinophil# 0.25 X10^3/uL; Eosinophils% 3.1 % (0-5); Hematocrit 43.1 % (40-54); Hemoglobin 13.9 g/dL (13.0-16.5); Lymphocyte # 1.93 X10^3/ul (0.83-4.51); Lymphocyte % 24.3 % (19-41); Mean Corp Hgb Conc 32.3 g/dL (32-36); Mean Corpuscular Hgb 26.5 pg (27.0-32.0); Mean Corpuscular Volume 82.1 fL (80-94); Mean Platelet Vol. 11.3 fl (6.2-12.0); Monocyte# 0.77 X10^3/uL; Monocyte% 9.7 % (0-10); NRBC Flagged by Analyzer 0 % (0-5); Neutrophil # 4.91 X10^3/uL (2.7-7.7); Neutrophil % 61.8 % (47-70); Platelet Count 323 K/mm3 (150-450); RBC Distribution Width CV 13.7 % (11.6-14.6); RBC Distribution Width SD 40.2 fl (35.1-43.9); Red Blood Count 5.25 M/mm3 (4.6-6.2)
[2023-06-28 13:01] LABS: Hemoglobin A1c 6.8 % (3.8-5.6)
[2023-06-28 13:04] LABS: ALB/GLOB Ratio 0.8 RATIO (0.9-2.4); AST(SGOT) 21 U/L (15-37); Alanine Aminotransfer ALT/SGPT 31 U/L (16-61); Albumin, Serum 3.2 g/dL (3.2-5.0); Alkaline Phosphatase 123 U/L (45-117); Anion Gap 4 (5-15); BUN 8 mg/dL (7-18); BUN/Creat Ratio 9.8 RATIO (10-20); Calcium,Total 8.9 mg/dL (8.5-10.1); Chloride 106 mmol/L (98-107); Cholesterol 177 mg/dL (200); Creatinine, Serum 0.82 mg/dL (0.70-1.30); EST Glomerular Filtration Rate 101 mL/min (>60); Est Glom Filt Rate - Afr Amer 122 mL/min (>60); Globulin 4.1 g/dL (2.2-4.2); Glucose 144 mg/dL (74-106); High Density Lipoprotein 39 mg/dL; Potassium 3.6 mmol/L (3.5-5.1); Protein, Total 7.3 g/dL (6.4-8.2); Sodium Level 139 mmol/L (136-145); Triglycerides 143 mg/dL; Very Low Density Lipoprotein 29 mg/dL (5-40)
[2023-06-29 13:46] LABS: PSA,Total - Annual Screen 0.16 ng/mL (0.00-4.00)
== END | disposition home or self-care (01) ==
LOC: MFPLAB 10:46
PROVIDERS: PCP Family Medicine; Visit Provider Family Medicine
DX: Z00.00 Encounter for general adult medical examination without abnormal findings (principal); E11.59 Type 2 diabetes mellitus with other circulatory complications; Z12.5 Encounter for screening for malignant neoplasm of prostate; I10 Essential (primary) hypertension
CPT/HCPCS: 36415; 80053; 80061; 83036; 84153; 85025; 86850; 86900; 86901; G0103

== ENCOUNTER → 2024-04-29 | Outpatient (CLI) | payer OTHER, SELFPAY ==
[2024-04-29 15:54] LABS: ALB/GLOB Ratio 0.8 RATIO (0.9-2.4); AST(SGOT) 15 U/L (15-37); Alanine Aminotransfer ALT/SGPT 31 U/L (16-61); Albumin, Serum 3.2 g/dL (3.2-5.0); Alkaline Phosphatase 101 U/L (45-117); Anion Gap 9 (5-15); BUN 9 mg/dL (7-18); BUN/Creat Ratio 10.7 RATIO (10-20); Calcium,Total 8.6 mg/dL (8.5-10.1); Chloride 103 mmol/L (98-107); Creatinine, Serum 0.84 mg/dL (0.70-1.30); EST Glomerular Filtration Rate 98 mL/min (>60); Est Glom Filt Rate - Afr Amer 118 mL/min (>60); Glucose 131 mg/dL (74-106); PSA,Total- Diagnostic 0.42 ng/mL (0.0-4.0); Potassium 4.3 mmol/L (3.5-5.1); Protein, Total 7.2 g/dL (6.4-8.2); Sodium Level 134 mmol/L (136-145)
[2024-04-29 17:29] LABS: Hemoglobin A1c 7.3 % (3.8-5.6)
[2024-04-29 22:25] LABS: Absolute Lymphocyte Count 2.35 X10^3/uL (0.83-4.51); Basophil# 0.05 X10^3/uL; Basophil% 0.6 % (0-1); Eosinophil# 0.19 X10^3/uL; Eosinophils% 2.2 % (0-5); Hematocrit 39.8 % (40-54); Hemoglobin 12.9 g/dL (13.0-16.5); Lymphocyte # 2.35 X10^3/ul (0.83-4.51); Lymphocyte % 27.7 % (19-41); Mean Corp Hgb Conc 32.4 g/dL (32-36); Mean Corpuscular Hgb 26.7 pg (27.0-32.0); Mean Corpuscular Volume 82.2 fL (80-94); Mean Platelet Vol. 11.1 fl (6.2-12.0); Monocyte# 0.83 X10^3/uL; Monocyte% 9.8 % (0-10); NRBC Flagged by Analyzer 0 % (0-5); Neutrophil # 5.02 X10^3/uL (2.7-7.7); Neutrophil % 59.1 % (47-70); Platelet Count 377 K/mm3 (150-450); RBC Distribution Width CV 13.5 % (11.6-14.6); RBC Distribution Width SD 40.3 fl (35.1-43.9); Red Blood Count 4.84 M/mm3 (4.6-6.2); White Blood Count 8.5 K/mm3 (4.4-11.0)
== END | disposition home or self-care (01) ==
LOC: MFPLAB 11:46
PROVIDERS: PCP Family Medicine; Referring Provider Family Medicine; Visit Provider Family Medicine
DX: N39.0 Urinary tract infection, site not specified (principal); E11.59 Type 2 diabetes mellitus with other circulatory complications
CPT/HCPCS: 36415; 80053; 83036; 84153; 85025

== ENCOUNTER → 2024-06-08 | Outpatient (CLI) | payer OTHER, SELFPAY ==
--- NOTE | 2024-06-08 08:55 | CT_ITS ---
PROCEDURE: ABDOMEN WITHOUT IV CONTRAST REASON FOR EXAM: Right flank pain. Gross hematuria. TECHNIQUE: Contiguous axial scans of 2.5 mm slice thicknesses without intravenous and oral contrast. Sagittal and coronal reconstruction images were obtained. One or more dose reduction techniques were used (e.g., Automated exposure control, adjustment of the mA and/or kV according to patient size, use of iterative reconstruction technique). COMPARISON: No relevant prior. FINDINGS: Noncontrast technique limits evaluation of the abdominal viscera. Lung bases: Clear Liver: Unremarkable. Gallbladder: Unremarkable. Spleen: Unremarkable. Pancreas: Unremarkable. Adrenals: Unremarkable. Kidneys: A 1.3 cm hyperdense cortical nodule involving the posterior interpolar region, right kidney. A 1.1 cm hyperdense right parenchymal nodule, posterior midpole. Bowel: Visualized loops of bowel in the upper abdomen are unremarkable. Lymph nodes: No suspicious lymph node enlargement. Vasculature: Mild atherosclerosis of the aortoiliac arteries. Peritoneum / Retroperitoneum: No ascites or free air at the upper abdomen. Abdominal wall: Fat containing midline ventral hernia. Bones: Multilevel spondylosis. CT/Abdomen without IV Contrast IMPRESSION: 1. Fat containing midline ventral hernia. 2. Hyperdense nodule in the right kidney may represent angiomyolipoma. 3. Small right hyperdense renal cyst, upper interpolar region. 4. Other nonacute findings detailed above. Reading Location: [facility]
== END | disposition home or self-care (01) ==
PROVIDERS: PCP Family Medicine; Referring Provider Family Medicine; Visit Provider Family Medicine
DX: N39.0 Urinary tract infection, site not specified (principal); R10.12 Left upper quadrant pain
CPT/HCPCS: 74150

== ENCOUNTER → 2024-08-08 | Outpatient (CLI) | payer OTHER, SELFPAY ==
--- NOTE | 2024-08-08 08:50 | CT_ITS ---
PROCEDURE: ABDOMEN/PELVIS WITH CONTRAST 08/08/2024 REASON FOR EXAM: BENIGN PROSTATIC HYPERPLASIA WITH LOWER URINARY TRACT SYMPTOMS Hematuria. Difficulty urinating. TECHNIQUE: Abdomen and pelvis CT with intravenous contrast. Coronal and Sagittal reconstruction series were provided. PATIENT PREPARATION: Per protocol ORAL CONTRAST TYPE: None. CONTRAST: Isovue-300 VOLUME: 100 mL One or more dose reduction techniques were used (e.g., Automated exposure control, adjustment of the mA and/or kV according to patient size, use of iterative reconstruction technique. RADIATION DOSE SUMMARY: CTDlvol: 20 mGy DLP: 1473.27 mGycm COMPARISON: Comparison is made with prior study dated June 08, 2024. FINDINGS: Lung bases: Mild dependent atelectasis Liver: Normal size. No mass. Gallbladder: Unremarkable Spleen: Normal size. Pancreas: Normal size without evidence of mass surrounding inflammation or ductal dilation. Adrenals: Unremarkable Kidneys: Stable subcentimeter cyst in the posterior midportion of the right kidney. Bladder: Questionable 2.2 cm polypoid abnormality of the base of the bladder. Correlation with cystoscopy. Abdominal wall: Stable anterior midline ventral hernia containing fat. The neck of the hernia measures 2.9 cm. Bowel: Moderate amount of fecal material is seen in the right hemicolon. Appendix: Unremarkable Lymph nodes: Unremarkable. Vasculature: Mild diffuse atherosclerotic calcifications are noted. Peritoneum / Retroperitoneum: Bones: Minimal anterior listhesis of L5 on S1 with spondylolysis of the pars interarticularis of the L5 vertebrae. CT/Abdomen/Pelvis WITH Contrast IMPRESSION: Stable anterior ventral hernia containing fat. Questionable 2.2 cm polypoid abnormality of the base of the bladder. Correlati on with cystoscopy recommended. Stable subcentimeter cyst in the posterior midportion of the right kidney. Reading Location: [facility]
[2024-08-08 13:24] LABS: CREATININE FINGERSTICK < 1.0 mg/dL (0.70-1.30); EGFR FINGERSTICK > 60.0000 mL/min (>60)
== END | disposition home or self-care (01) ==
LOC: CT 08:37
PROVIDERS: PCP Family Medicine; Referring Provider Urology; Visit Provider Urology
DX: N40.1 Benign prostatic hyperplasia with lower urinary tract symptoms (principal); R31.0 Gross hematuria
CPT/HCPCS: 74177; Q9967

== ENCOUNTER → 2025-01-08 | Outpatient (CLI) | payer OTHER, SELFPAY ==
--- NOTE | 2025-01-08 11:04 | RAD_ITS ---
PROCEDURE: KNEE 4 OR MORE VIEWS 01/08/2025 REASON FOR EXAM: KNEE PAIN TECHNIQUE: Procedure Code: RADKN Modality: DX Procedure: KNEE 4 OR MORE VIEWS Laterality: Right COMPARISON: None. FINDINGS: BONES: No acute fracture or focal osseous lesion. JOINTS: Small suprapatellar joint effusion. No dislocation. The joint spaces are fairly well-preserved. Minimal tricompartmental marginal osteophytes. Sharpening of the tibial spines. SOFT TISSUES: The soft tissues are unremarkable. RAD/Knee 4 or More Views IMPRESSION: 1. No acute osseous abnormality. 2. Small knee joint effusion. 3. Early degenerative changes. Reading Location: [id number]
== END | disposition home or self-care (01) ==
LOC: MTRAD 11:03
PROVIDERS: PCP Family Medicine; Referring Provider Family Medicine; Visit Provider Family Medicine
DX: M25.561 Pain in right knee (principal)
CPT/HCPCS: 73564

== ENCOUNTER → 2025-02-15 | Outpatient (CLI) | payer OTHER, SELFPAY ==
--- NOTE | 2025-02-15 09:10 | MRI_ITS ---
PROCEDURE: LOWER EXT JOINT ONLY (ROUTINE) 02/15/2025 REASON FOR EXAM: RIGHT KNEE INJURY TECHNIQUE: Procedure Code: MRILEJ Modality: MR Procedure: LOWER EXT JOINT ONLY (ROUTINE) T1, T2, multiplanar and multisequence images of the right knee were obtained without IV contrast administration. COMPARISON: COMPARISON : None FINDINGS: Bone Marrow: There is subcortical edema in the medial tibial plateau. Joint space narrowing and osteophyte formation is noted in the medial compartment and patellofemoral articulation. Cruciate ligaments: There is edema and attenuation in the mid and lower portion of the anterior cruciate ligament without laxity, grade 2 sprain. The posterior cruciate appears intact. Collateral ligaments: The medial collateral ligament appears intact. The lateral collateral ligament complex appears intact Menisci: The lateral meniscus appears intact. There is a tear of the root of the medial meniscus with extrusion of the body. 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 Effusion: There is a small joint effusion. There is no Meier's cyst. MRI/Lower Ext Joint Only (Routine) IMPRESSION: There is subcortical edema in the medial tibial plateau. There is edema and attenuation in the mid and lower portion of the anterior cru ciate ligament without laxity, grade 2 sprain. There is a tear of the root of the medial meniscus with extrusion of the body. 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 There is a small joint effusion. Reading Location: [facility]
== END | disposition home or self-care (01) ==
LOC: MRI 08:45
PROVIDERS: PCP Family Medicine; Referring Provider Family Medicine; Visit Provider Family Medicine
DX: M25.561 Pain in right knee (principal)
CPT/HCPCS: 73721

== ENCOUNTER → 2025-04-17 | Outpatient (CLI) | payer OTHER, SELFPAY ==
[2025-04-22 11:09] LABS: Testosterone, % Free 3.14 % (1.50-4.20); Testosterone, Free 23.24 ng/dL (5.00-21.00)
== END | disposition home or self-care (01) ==
LOC: MFPLAB 11:32
PROVIDERS: PCP Family Medicine; Visit Provider Family Medicine
DX: N62 Hypertrophy of breast (principal)
CPT/HCPCS: 36415; 84402; 84403

== ENCOUNTER 2025-04-30 10:00 | Outpatient (RCR) | payer OTHER, SELFPAY ==
--- NOTE | 2025-01-21 11:47 | HP.PTEVAL_ITS ---
Patient's Visit Information Visit Information Visit Information: JALEN SANDERS is a 64 year old M referred to Physical Therapy by More Bardales MD with a diagnosis of R hamstring strain.. Date of Evaluation: 01/21/25 Physical Therapist: Joao Brandon, PT, ATC Visit Plan Frequency: 2x /Week Duration: 2-4 Weeks Plan: R hamstring stretching, DTR, hawks jackhammer operator, stick rollout, and HEP Subjective Subjective: Pt reports he was exercising 3 days ago here at [employer] [facility] [employer] pt notes he performed leg press, leg curl, and seated leg press on that date. Pt notes he had no pain during the work out, but notes significant in the day after. Pt notes his pain is worst on the posterior aspect of R knee, and on the lateral aspect. Pt denies any tingling or numbness at this time. No sleep difficulty secondary to pain. Pt notes increased ambulation and using stairs increases his pain. Pt notes he has had to alter his gait secondary to his pain. Pt reports stepping in an awkward way is what increases his pain the worst. 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 1/10 pain at rest, 10/10 pain at worst. Pt denies knee locking up or giving out at this time. Pt had xrays which revealed OA, and sees the ortho for a consult in a few days. Pain R knee: Pain Intensity (Out of 10): 1 Pain Intensity Range: 10 Objective Objective: Neuro: B LE sensation is WNL to light touch Palpation: Pt is very sore on the medial spect of R knee. Sig crepitus with AROM. Pt is also very sore along the medial hamstring tendon ROM: L knee 0-120 degrees ; R knee 0-5-105 degrees MMT: L knee flex= 58, ext= 55; R knee flex= 37, ext= 43 #F special tests: Pos 90/90 test Balance/Special Test Scores Lower Extremity Functional Score: 24 Goals Goal 1:: Decrease R hamstring pain x 50% to aid with ambulation Goal Time Frame: 2-4 Weeks Goal 2:: Increase R hamstring strength to equal 90% L hamstring strength to aid with work requirements Goal Time Frame: 2-4 Weeks Goal 3:: I with HEP Goal Time Frame: 2-4 Weeks Rehabilitation Potential Physical Therapy Diagnosis: Pt has R hamstring pain and weakness secondary to R hamstring strain. Rehabilitation Potential: Good Anticipated Interventions Patient/Client Instruction: Educate patient on: Condition and Plan of Care For the Purpose of:: To improve self management Therapeutic Exercise to Include: Strength training, Endurance training, Fl exibilty training, Active ROM and Dynamic Lumbar Stabilization For the Purpose of:: To decrease pain, To increase ROM and To improve muscle performance and motor function Text: Thank you for the opportunity to evaluate your patient. For Medicare and Medicare HMO plans, please review the plan of care and approve it. It will need to be FAXED BACK to us at [phone] for Medicare purposes. For Medicare only, by signing this I certify the plan of care. Please let me know if there are questions or concerns regarding this plan of care. Physician Signature: Date:
--- NOTE | 2025-01-23 09:47 | HP.FCE ---
Task Lift Floor (Occasional 1-33% of Day): 70 Floor (Frequent 34-66% of Day): 35 Floor (Constant 67-100% of Day): 14.7 Floor PDL: Medium Knee (Occasional 1-33% of Day): 70 Knee (Frequent 34-66% of Day): 35 Knee (Constant 67-100% of Day): 14.7 Knee PDL: Medium Waist (Occasional 1-33% of Day): 70 Waist (Frequent 34-66% of Day): 35 Waist (Constant 67-100% of Day): 14.7 Waist PDL: Medium Shoulder (Occasional 1-33% of Day): 70 Shoulder (Frequent 34-66% of Day): 35 Shoulder (Constant 67-100% of Day): 14.7 Shoulder PDL: Medium Overhead (Occasional 1-33% of Day): 45 Overhead (Frequent 34-66% of Day): 22.5 Overhead (Constant 67-100% of Day): 9.47 Overhead PDL: Light-Medium Comments: pt scores as medium for floor, knee, waist as well as shoulder lift then light-medium for overhead lift. Work Activity/Posture Bending: Frequent Ability (34-66% of day) Squatting: Frequent Ability (34-66% of day) Kneeling: Occasional Ability (1-33% of day) Reaching out: Constant Ability (67-100% of day) Reaching up: Constant Ability (67-100% of day) Sitting: Constant Ability (67-100% of day) Walking: Frequent Ability (34-66% of day) Standing: Frequent Ability (34-66% of day) Reference Reference: Duration Sedentary Sedentary Light Light Light Medium Medium Medium Heavy Very Heavy Heavy Occasional (0-33% of day) Frequent (34-66% of day) Constant (67-100% of day) 10 # Negligible Negligible 15 # 8 # Negligible 20 # 10# Negli. 35 # 18 # 7 # 50 # 25 # 10 # 75 # 100 # >100 # 38 # 50 # >50 # 15 # 20 # >20 # Patient Information Height: 5 ft 7 in Weight:: 147.418 kg Hand Dominance: R Medical History Medical History Including Restrictions: This 64 year old male arrives with dx of R knee strain completing FCE for return to work. Pt has been on light duty office type work for 2 weeks. Injury occurred January 08 and progressively got worse. Pt seeing PT and reports it has been helping. Pt has been taking occ Aleve as needed for pain management. 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 Once inside no steps. pt bathroom walk in shower no bars does have portable seat with high rise commode. Pt performs all ADL tasks on own as well as cooking and cleaning. Drives. Does not use AD for mobility. does not own any AD. Physical Examination Physical Examination: at baseline seated HR 91 bpm and 02 92% ROM: B Upper Extremity: WFL B Lower Extremity: WFL Strength: measured using fet peak force Upper Extremity: L shoulder flexion: 33.8# R shoulder flexion: 31.5# L tricep: 22.5# R tricep: 23# L bicep: 42.7 R bicep: 35.7# L ER: 33.5# R ER: 31.2# Lower Extremity: L hip flexion: 39.7# R hip flexion: 17.9# L hamstrin.8# R hamstrin.5$ L quad: 34.4# R quad: 29.9# Right Client Service Consultant Strength Average: 96.66 Right Client Service Consultant Strength Percentile: 52.8 percentile Left Client Service Consultant Strength Average: 100.00 Left Client Service Consultant Strength Percentile: 77.8 percentile Right Lateral Pinch Average: 27.00 Right Lateral Pinch Percentile: >90th percentile Left Lateral Pinch Average: 23.00 Left Lateral Pinch Percentile: > 90th percentile Right Tripod Pinch Average: 20.00 Right Tripod Pinch Percentile: 75th percentile Left Tripod Pinch Average: 22.00 Left Tripod Pinch Percentile: >90th percentile Sensation: will have occ tingling of LUE that will only last a few seconds however in general no numbness tingling Fine Motor: no difficulty per report Balance: standing forward reach score 12 a score of 10 or more indicates low risk for falls Non Material Handling Activities Bending: Bending: trial of 3: 07/08 10x own pace: 02/14 10x fast: 02/14 pain rating 07/15 R knee once LOB able to correct bends at waist does not bent at knee due to pain no external support HR 132 bpm and 02 95% Squatting: squatting: trial of 3: 07/08 10x at own pace: 02/14 10x fast: 02/14 HR 130 bpm and 02 96% pain rating R knee 06/17 no external support comes intermediate down no LOB wide stance Kneeling: kneeling: trial of 3: 07/08 10x own pace : 02/14 10x fast: 05/17 per pt does not have to do kneeling at work uses external support of desk uses upper body to perform HR 121 bpm and 02 98% R knee pain 10 during bend gets up to 12/15 Reaching out/up: reaching out: trial of 3: 07/08 10x own pace: 02/14 10x fast: 02/14 reaching up: trial of 3: 07/08 10x own pace: 02/14 10x fast: 02/14 completes in standing no LOB during task HR 127 bpm and 02 97% Walking: walked approx 4 laps around therapy gym pt states he is able to do more 1544 feet during assessment R knee pain rating 05/17 HR 112 bpm and 02 98% steady pace R LE externally rotated to avoid pain able to maintain conversation no external supports needed Standing: standing during FCE for approx 20 min before sit-- could have stood longer no external supports per pt able to stand for approx 30 min before needing to sit for RB Sitting: per pt able to sit for approx 1 hour before needing to get up and move around sits for intake of assessment approx 30 min could have sat longer does not demo need to chnage positoning often Climbing Stairs: able to ascend and descend 10 steps alternating feet use of unilateral hand rail no LOB during task Dynamic Occasional Lifting Capacity Floor Lift: Floor Lift: box (15#)+ 55= 70# total able to reach using waist to bend versus legs places on counter and bring back down controlled pain 05/17 R knee Knee Lift: Knee Lift: box (15#)+ 55= 70# total bends at waist to perform no LOB Waist Lift: waist lift: box (15#) +55= 70# pain R knee 0/10 HR 88 bpm and 02 98% able to take small step and come back with control keeps load close to body Shoulder Lift: shoulder lift: box (15)+ 55= 70# uses UB strength to perform able to control up and down Overhead Lift: overhead lift: box (15#)+ 30= 45# lifts to top box slight uncontrol as box shifts able to correct and bring back down controlled Carrying: box (15#) + 30#= 45# carry to filing cabinet and back 52 feet no LOB steady pace Comments: pt unable to currently run at this time due to knee pain push and pull 175# including sled pushes 60 feet x2 pulls 60 feet x2
--- NOTE | 2025-02-12 12:13 | HP.PTREVAL ---
Re-Evaluation Intro: More Bardales MD, It has been my pleasure to treat JALEN SANDERS over the last 5 visits for R hamstring strain.. Please see the progress note below for an update on the physical therapy plan of care! Subjective Subjective: I am better, but my pain still increases a lot when I stand for a long period of time. Objective Objective/Function: R hamstring pain is 2/10, still increases to 7/10 at worst MMT: L knee= 62, R knee= 46 #F Pt continues to feel increased pain with increased activity, but is showing overall increased strength and decreased pain. Plan Plan Plan: 02/12/25- continue with stick rollout and stretching. Add R hamstring strengthening activity Balance/Gait/Functional tests Balance/Special Test Scores Lower Extremity Functional Score: 58 Goals Goals Goal 1:: Decrease R hamstring pain x 50% to aid with ambulation Goal Time Frame: 2-4 Weeks Goal Progress: Progressing Goal 2:: Increase R hamstring strength to equal 90% L hamstring strength to aid with work requirements Goal Time Frame: 2-4 Weeks Goal Progress: Progressing Goal 3:: I with HEP Goal Time Frame: 2-4 Weeks Goal Progress: Progressing Anticipated Interventions Anticipated Interventions Patient/Client Instruction: Educate patient on: Condition and Plan of Care For the Purpose of:: To improve self management Therapeutic Exercise to Include: Strength training, Endurance training, Flexibilty training, Active ROM and Dynamic Lumbar Stabilization For the Purpose of:: To decrease pain, To increase ROM and To improve muscle performance and motor function Re-Evaluation Ending Re-evaluation ending: Please do not hesitate to contact me at [phone] by phone or if you have questions or concerns regarding this new plan of care! Sincerely, Joao Brandon, PT, ATC
--- NOTE | 2025-03-04 11:41 | HP.PTREVAL ---
Re-Evaluation Intro: More Bardales MD, It has been my pleasure to treat JALEN SANDERS over the last 10 visits for R hamstring strain.. Please see the progress note below for an update on the physical therapy plan of care! Subjective Subjective: My knee is very sore when I am walking. Objective Objective/Function: R knee pain ranges 2-8/10 R knee ROM: 0-105 degrees R knee MMT: flex= 33, ext= 49 #F Plan Plan Plan: Pt to continue with I gym routine at this time. I will follow up with him every 2 weeks to assess progress. Balance/Gait/Functional tests Balance/Special Test Scores Lower Extremity Functional Score: 58 Goals Goals Goal 1:: Decrease R hamstring pain x 50% to aid with ambulation Goal Time Frame: 2-4 Weeks Goal Progress: Progressing Goal 2:: Increase R hamstring strength to equal 90% L hamstring strength to aid with work requirements Goal Time Frame: 2-4 Weeks Goal Progress: Progressing Goal 3:: I with HEP Goal Time Frame: 2-4 Weeks Goal Progress: Progressing Anticipated Interventions Anticipated Interventions Patient/Client Instruction: Educate patient on: Condition and Plan of Care For the Purpose of:: To improve self management Therapeutic Exercise to Include: Strength training, Endurance training, Flexibilty training, Active ROM and Dynamic Lumbar Stabilization For the Purpose of:: To decrease pain, To increase ROM and To improve muscle performance and motor function Re-Evaluation Ending Re-evaluation ending: Please do not hesitate to contact me at [phone] by phone or if you have questions or concerns regarding this new plan of care! Sincerely, Joao Brandon, PT, ATC
--- NOTE | 2025-04-09 12:27 | HP.PTREVAL ---
Re-Evaluation Intro: More Bardales MD, It has been my pleasure to treat JALEN SANDERS over the last 12 visits for R hamstring strain.. Please see the progress note below for an update on the physical therapy plan of care! Subjective Subjective: I have backed off a lot and I am feeling really good Objective Objective/Function: R knee pain ranges 1-8/10 R knee ROM: 0-110 degrees R knee MMT: flex= 28, ext= 37 #F Plan Plan Plan: Pt to continue with I gym routine at this time. I will follow up with him in 3 weeks to assess progress. Balance/Gait/Functional tests Balance/Special Test Scores Lower Extremity Functional Score: 58 Goals Goals Goal 1:: Decrease R hamstring pain x 50% to aid with ambulation Goal Time Frame: 2-4 Weeks Goal Progress: Progressing Goal 2:: Increase R hamstring strength to equal 90% L hamstring strength to aid with work requirements Goal Time Frame: 2-4 Weeks Goal Progress: Progressing Goal 3:: I with HEP Goal Time Frame: 2-4 Weeks Goal Progress: Progressing Anticipated Interventions Anticipated Interventions Patient/Client Instruction: Educate patient on: Condition and Plan of Care For the Purpose of:: To improve self management Therapeutic Exercise to Include: Strength training, Endurance training, Flexibilty training, Active ROM and Dynamic Lumbar Stabilization For the Purpose of:: To decrease pain, To increase ROM and To improve muscle performance and motor function Re-Evaluation Ending Re-evaluation ending: Please do not hesitate to contact me at [phone] by phone or if you have questions or concerns regarding this new plan of care! Sincerely, Joao Brandon, PT, ATC
--- NOTE | 2025-04-30 10:35 | HP.PTDCSUM ---
Discharge Summary D/C summary: It has been my pleasure to treat JALEN SANDERS referred by More Bardales MD, with the diagnosis of R hamstring strain. for a total of 13 visit(s). Discharge Date: Please see the following information for a summary of their discharge status. Subjective Subjective: I am ready to be done Pain R knee: Pain Intensity (Out of 10): 3 Overall Improvement % Improvement: 75 Objective Objective/Function: R knee pain 3/10 R knee MMT: flex= 19 (L= 58), ext= 39 (L= 60) Pt is I with HEP Goals Goal 1:: Decrease R hamstring pain x 50% to aid with ambulation Goal Progress: Goal Met Goal 2:: Increase R hamstring strength to equal 90% L hamstring strength to aid with work requirements Goal Progress: Progressing Goal 3:: I with HEP Goal Progress: Goal Met Plan Plan: Discharge to I gym routine D/C Information d/c sentence: If there are questions or concerns regarding this patient's physical therapy, please feel free to call me at [phone]. Thank you for the referral of this patient. Sincerely, Joao Brandon, PT, ATC Balance/Gait/Functional tests Balance/Special Test Scores Lower Extremity Functional Score: 58 Improvement % Improvement: 75
== END 2025-04-30 11:52 | disposition home or self-care (01) ==
LOC: PT 10:00
PROVIDERS: PCP Family Medicine; Referring Provider Family Medicine; Visit Provider Family Medicine
DX: M25.561 Pain in right knee (principal)
CPT/HCPCS: 97110; 97140; 97161; 97530; 97750

== ENCOUNTER 2025-04-30 11:53 | Outpatient (RCR) | payer OTHER, SELFPAY | END 2025-04-30 11:53 | disposition home or self-care (01) | LOC: OT 11:53 | PROVIDERS: PCP Family Medicine; Referring Provider Orthopaedic Surgery; Visit Provider Orthopaedic Surgery | DX: S83.241A Other tear of medial meniscus, current injury, right knee, initial encounter (principal); M17.11 Unilateral primary osteoarthritis, right knee ==